=== PATIENT | female | born 1990 | race Caucasian/White ===

== ENCOUNTER 2016-11-12 20:40 | Emergency (ER) | payer OTHER ==
[~2016-11-12] VITALS: Ht 160 cm; Wt 79.5 kg
[~2016-11-12 20:40] MED LIST: ACET-1890 PO; ALBU8.5H4 IH; ASCO500T9 PO; CALC-881 PO; Docusate Sodium PO; FERR-83 PO; Ibuprofen PO
[2016-11-12 20:46] VITALS: BP 125/78; PULSE 85; RESP 16; O2SAT 98
[2016-11-12 21:11] LABS: APPEARANCE,URINE HAZY (CLEAR,HAZY); COLOR,URINE YELLOW (YELLOW); OCCULT BLOOD,URINE LARGE (NEGATIVE); PH,URINE 6.5 (5.0-8.0); UROBILINOGEN,URINE NORMAL (NORMAL)
--- NOTE | 2016-11-12 21:39 | ED.REPORT ---
HPI-Abd Pain F Under 40 Date of Service Nov 12, 2016 ED Provider: Dr. Laguna 26 year old female who has been for "a couple of weeks" presents to ED complaining of hematuria onset today. She visited her PCP, who recommended that she come to the ED. Additional symptoms include abdominal pain which has gradually improved and subjective fever (max temp of 99.5). She denies any vomiting. Nursing Notes Stated Complaint: BLOOD IN URINE Chief Complaint: Female Abdominal Pain Nursing Notes Reviewed: Yes Allergies: Coded Allergies: latex (Verified Allergy, Unknown, 11/12/16) Scheduled ([Docusate Sodium]) 100 MG CAPSULE 100 MG PO BID Acetaminophen (Tylenol) 325 Mg Tablet 325 MG PO DAILY Ascorbic Acid (Ascorbic Acid) 500 Mg Tablet 500 MG PO DAILY Calcium Carb & Cit/Vitamin D3 (Calcium + Vitamin D3 Caplet) 1 Each Tablet.er 1 EACH PO DAILY Cephalexin (Keflex) 500 Mg Capsule 500 MG PO QID Ferrous Sulfate (Ferrous Sulfate) 325 Mg Tablet 325 MG PO DAILY Scheduled PRN ([Ibuprofen]) 800 MG TABLET 800 MG PO Q6H PRN PRN For Pain Albuterol HFA (Albuterol HFA) 8.5 Gm Hfa.aer.ad 2 PUFF IH Q4 PRN PRN For Wheezing General Time Seen by MD: 21:38 Chief Complaint Other (hematuria) Hx Obtained From: Patient Arrived By: Walk-in Sudden in Onset?: Yes Onset Occurred: 5 - 8 hours ago Symptom Duration: Since onset Recent Healthcare: No recent hospitalization, Recent doctor visit Similar Sx Previous: No Past Medical History Past Medical History Reports: Asthma Past Surgical History none reported Smoking History Former Smoker Social History Other Social History: Good social support Ambulatory Status Independent Review of Systems Review of Systems Note: Hematuria. Constitutional: Reports: Fever (subjective fever, 99.5 measured.) GI: Reports: Abdominal pain, Denies: Vomiting Female: Reports: Hematuria, (Has been for "a couple of weeks.") Complete sys rev & neg: except as marked. Physical Exam Initial Vital Signs Vital Signs (First) Date Time Temp Pulse Resp B/P Pulse Ox O2 Delivery O2 Flow Rate FiO2 11/12/16 20:46 37.1 85 16 125/78 98 Initial VS: Reviewed General/Constitutional: Awake, Alert, Well appearing Respiratory / Chest: Atraumatic, Breath sounds NL, Breath sounds = bilat, No respiratory distress, No rales, No rhonchi, No wheezing Cardiovascular: Heart rate NL, Regular rhythm, Heart sounds NL, No gallop, No murmurs, No rubs Abdomen: Atraumatic, Soft, Non-tender, No guarding, No rebound Back: Atraumatic, Full range of motion Head / Eyes: Atraumatic, Normocephalic, PERRL, EOMI ENT: Atraumatic, Airway patent, Mucous membranes moist Skin: Atraumatic, Color NL, No rash, Warm, Dry Neurologic: Oriented X3, Speech NL, No motor deficits, No sensory deficits Neck: Atraumatic, Full range of motion Upper Extremity / MS: Atraumatic, Inspection NL, Full range of motion Lower Extremity / Pelvis / MS: Atraumatic, Inspection NL, Full range of motion Psychiatric: Affect NL, Mood NL Interpretation & Diagnostics Interpretation & Diagnostics: Pelvic/Transvaginal US: IMPRESSION: 1. 8 x 4 mm sac in the uterine cavity dates 5 weeks 2 days but there is no pole or yolk sac to confirm that this is a gestational sac. In a patient, differential includes very early IUP, miscarriage, and remote possibility of ectopic . Followup with serial hCG and ultrasound as needed. 2. 2.9 x 2.6 cm right ovarian cyst/corpus luteum. Color Doppler flow noted to the ovaries. No adnexal mass of complex free fluid. Lab Results Interpretation Result Diagram: 11/12/16219911/12/16 220 Test 11/12/16 20:57 11/12/16 22:00 Urine Color Yellow (YELLOW) Urine Appearance Hazy (CLEAR,HAZY) Urine pH 6.5 (5.0-8.0) Urine Specific [place] 1.025 (1.003-1.035) Urine Protein Tracemg/dL (NEG,TRACE) Urine Glucose (UA) Negativemg/dL (NEGATIVE) Urine Ketones Tracemg/dL (NEGATIVE) Urine Occult Blood Large (NEGATIVE) Urine Nitrite Negative (NEGATIVE) Urine Bilirubin Negative (NEGATIVE) Urine Urobilinogen Normalmg/dL (NORMAL) Urine Leukocyte Esterase Trace (NEGATIVE) Urine RBC >50/hpf (0-2) Urine WBC 6-10/hpf (0-5) Urine Epithelial Cells Few/hpf (NONE-MOD) Urine Crystals None seen (NONE SEEN) Urine Bacteria Few/hpf (NONE-FEW) Urine Hyaline Casts None/lpf (NONE) Urine Granular Casts None seen (NONE SEEN) Urine Waxy Casts None seen (NONE SEEN) Urine Red Blood Cell Casts None seen (NONE SEEN) Urine White Blood Cell Casts None seen (NONE SEEN) Urine Mucus None seen (None Seen) Urine Trichomonas None seen (NONE SEEN) Urine Yeast None (NONE SEEN) Urinalysis Comment None Urine Culture Reflexed Indicated White Blood Count 18.2th/mm3 (3.8-10.1) Red Blood Count 4.27mil/mm3 (3.90-5.20) Hemoglobin 14.8g/dL (12.0-15.6) Hematocrit 42.8% (35.0-46.0) Mean Corpuscular Volume 100.2fL (81-100) Mean Corpuscular Hemoglobin 34.7pg (27.0-35.0) Mean Corpuscular Hemoglobin Concent 34.6% (32.0-37.0) Red Cell Distribution Width 13.5% (12.3-15.4) Platelet Count 217bil/L (150-400) Neutrophils (%) (Auto) 79.1% (40-74) Lymphocytes (%) (Auto) 12.6% (14-46) Monocytes (%) (Auto) 7.5% (4-12) Eosinophils (%) (Auto) 0.3% (0-5) Basophils (%) (Auto) 0.2% (0-3) Sodium Level 139mEq/L (134-144) Potassium Level 3.9mEq/L (3.5-5.2) Chloride Level 102mEq/L (97-108) Carbon Dioxide Level 22mmol/L (18-29) Blood Urea Nitrogen 8mg/dL (6-20) Creatinine 0.64mg/dL (0.57-1.00) Estimat Glomerular Filtration Rate 161mL/min (>59) Glucose Level 87mg/dL (60-99) Calcium Level 8.9mg/dL (8.5-10.1) Total Bilirubin 0.3mg/dL (0.0-1.2) Aspartate Amino Transf (AST/SGOT) 21U/L (0-50) Alanine Aminotransferase (ALT/SGPT) 13U/L (0-32) Alkaline Phosphatase 51U/L (25-150) Total Protein 7.0g/dL (6.4-8.4) Albumin 4.2g/dL (3.4-5.0) HCG Beta Subunit 2198mIU/mL Hold Tuttle Top Tube Received (Received) Re-Eval/Medical Decision Med Decision/Clinical Course Med Decision/Clinical Course: 26-year-old with lower abdominal crampy discomfort in the setting of an early of uncertain age. No evidence of ectopic on ultrasound with a five week two day conceptus present in the uterus.. She has UTI on microscopic and will be treated with Keflex. Discharged now in stable condition. Source of Hx: Old records Re-Evaluation/Progress : Time of Eval: 01:33 Patient Status: Condition improved Re-Evaluation/Progress Note: Rechecked with patient, explained test resulst, diagnosis and plan for discharge and follow up. The pt understands and agrees with the plan. All questions are addressed at this time. Counseled Regarding: Diagnosis, Lab results, Need for follow-up, When/why to return to ED Discharge & Departure Primary Impression: UTI (urinary tract infection) Urinary tract infection type: site unspecified Hematuria presence: with hematuria Qualified Code: N39.0 - Urinary tract infection, site not specified Additional Impression: Intrauterine Disposition: Home Discharge Condition All VS Reviewed: Yes Condition: Stable Patient Instructions: Urinary Tract Infection in Women (ED) Additional Instructions: You have a urinary tract infection, which probably explains the blood in her urine. You do not have any evidence of abnormality in the . The is just at the lower limit of detection, estimated five weeks two days. Return if any heavy vaginal bleeding or other issues. Begin Keflex one capsule four times daily. Follow-up with your doctor in the office. Follow-up with Dr. Bazzi. Referrals: Johnnie Bazzi MD (PCP) Scribe Attestation Portions of this note were transcribed by Corby Lopez and Christian Amanda. I, Dr. Laguna personally performed the history, physical exam and medical decision -making; I reviewed and confirmed the accuracy of the information in the transcribed note. Signed by: Corby Lopez and Larry Tai, 2016 and 02:38. copies to: Johnnie Bazzi MD, Christopher W MD Nov 12, 2016 21:39 Corby Lopez Nov 12, 2016 21:46 CHRISTIAN AMANDA Nov 13, 2016 02:09
[2016-11-12 22:10] LABS: BASOPHILS % (AUTO) 0.2 % (0-3); EOSINOPHILS % (AUTO) 0.3 % (0-5); MONOCYTES % (AUTO) 7.5 % (4-12); Mean Corpuscular Hemoglobin 34.7 pg (27.0-35.0); Mean Corpuscular Volume 100.2 fL (81-100); NEUTROPHILS % (AUTO) 79.1 % (40-74); Platelet Count 217 bil/L (150-400)
[2016-11-13] MEDS ORDERED: CEPH-512 PO (01:30)
--- NOTE | 2016-11-13 08:54 | DRSVH ---
PROCEDURE: US OB<14 WKS+OB TRANSVAG INDICATIONS: poss ectopic OUTSIDE/PRIOR DATING DATA: TECHNIQUE: Real-time scanning was performed of the fetus and maternal pelvic organs, with image documentation. Endovaginal scanning was also performed to better visualize the fetus and maternal ovaries. COMPARISON: None. FINDINGS: Embryo: OB-FACING BASTER Ultrasound Procedure Report Early Gestation [employer] Mean Gestational Sac Diameter: 5.80 mm Gestational Age (MGSD): 5 weeks, 2 days Comments: No yolk sac or pole seen.. No perigestational bleeds. Measurement variability in dating: +/- 4 weeks by LMP, +/- 7 days by mean sac diameter (use before 6 weeks gestation if crown-rump length not able to be measured), +/- 5 days by crown-rump length (6-12 weeks gestation). Maternal organs: 2 simple cysts in the right ovary largest measuring roughly 29 mm. IMPRESSION: Probable intrauterine gestational sac present and no pole or yolk sac is visualized . Differential considerations would include spontaneous , early intrauterine gestation as we ll as occult ectopic . Recommend clinical correlation with serial beta-hCGs and/or followup sonographic imaging if indicated. Note: These findings are concordant with the preliminary interpretation. Dictated by: Gilbert NEVILLE Interpreted: Chelita Oakley MD on 11/13/2016 at 8:51 Transcribed by: [email or web address] on 11/13/2016 at 8:53 Approved by: Chelita Oakley M.D. on 11/13/2016 at 16:18
== END 2016-11-13 01:39 | disposition home or self-care (01) ==
LOC: SED 20:40
DX: O23.31 Infections of other parts of urinary tract in pregnancy, first trimester (principal); B97.89 Other viral agents as the cause of diseases classified elsewhere; Z3A.01 Less than 8 weeks gestation of pregnancy; J45.909 Unspecified asthma, uncomplicated; Z87.891 Personal history of nicotine dependence; Z91.040 Latex allergy status